=== PATIENT | male | born 1980 | race Caucasian/White ===

== ENCOUNTER 2017-12-14 20:05 | Emergency (ER) | payer SELFPAY, OTHER ==
[2017-12-15] MEDS: ACETAMINOPHEN 325 MG TAB PO (00:14)
[2017-12-15] MEDS: IBUPROFEN 600 MG TAB PO (00:15)
== END 2017-12-15 00:57 | disposition home or self-care (01) ==
LOC: FTE 12-15 00:57
DX: R50.9 Fever, unspecified (principal); R05 Cough; R19.7 Diarrhea, unspecified; R09.89 Other specified symptoms and signs involving the circulatory and respiratory systems; R51 Headache
CPT/HCPCS: 99284